=== PATIENT | female | born 1955 | race Caucasian/White ===

== ENCOUNTER → 2016-11-12 | Outpatient (REF) | payer OTHER ==
[~2016-11-12] MED LIST: ADVI200C5 PO; IBUP800T23 PO; LISI10TA4 PO; NEUR300C PO; PRAV1TAB39 PO; RANI1TAB38 PO; TIZA4CAP3 PO; VALT1TAB PO; VITA1CAP14 PO; ZOVI5CRE4 EXT
== END ==
LOC: M SFHCCLAY 07:08
PROVIDERS: ATTEND Nurse Practitioner Family
DX: E78.4 Other hyperlipidemia (principal); E55.9 Vitamin D deficiency, unspecified

== ENCOUNTER → 2017-05-14 | Outpatient (REF) | payer OTHER ==
[~2017-05-14] MED LIST changes: +IBUP1TAB7 PO; -IBUP800T23 PO
[2017-05-14 11:33] LABS: MEAN CORPUSCULAR HEMOGLOBIN 31.3 pg (27.0-33.0); MEAN CORPUSCULAR HGB CONC 32.9 g/dl (32.0-36.5); MEAN CORPUSCULAR VOLUME 95.2 fl (80.0-96.0); PLATELET COUNT, AUTOMATED 379 10^3/uL (150-450); RED CELL DISTRIBUTION WIDTH 12.3 % (11.5-14.5); WHITE BLOOD COUNT 6.5 10^3/uL (4.0-10.0)
[2017-05-14 11:54] LABS: ALBUMIN 3.9 GM/DL (3.2-5.2); ALBUMIN/GLOBULIN RATIO 1.15 (1.00-1.93); BILIRUBIN,TOTAL 0.4 MG/DL (0.2-1.0); CALCIUM LEVEL 9.5 MG/DL (8.8-10.2); CREATININE FOR GFR 1.02 MG/DL (0.55-1.02); GLOMERULAR FILTRATION RATE 58.8 (>45); POTASSIUM SERUM 4.8 MEQ/L (3.5-5.1); TOTAL PROTEIN 7.3 GM/DL (6.4-8.2)
== END ==
LOC: M SFHCCLAY 09:15
PROVIDERS: ATTEND Nurse Practitioner Family
DX: K21.9 Gastro-esophageal reflux disease without esophagitis (principal); I10 Essential (primary) hypertension; E78.4 Other hyperlipidemia; E55.9 Vitamin D deficiency, unspecified

== ENCOUNTER → 2017-09-08 | Outpatient (REF) | payer OTHER ==
[2017-09-08 12:42] LABS: ALBUMIN/GLOBULIN RATIO 1.25 (1.00-1.93); ALKALINE PHOSPHATASE 57 U/L (45-117); ALT/SGPT 40 U/L (12-78); AST/SGOT 22 U/L (7-37); BILIRUBIN,DIRECT 0.1 MG/DL (0.0-0.2); BILIRUBIN,TOTAL 0.3 MG/DL (0.2-1.0); CHOLESTEROL LEVEL 182 MG/DL (<200); CHOLESTEROL RISK RATIO 3.433 (<5); HDL CHOLESTEROL 53 MG/DL (>40); LDL CHOLESTEROL 99.4 MG/DL (<100); NON-HDL-C 129 MG/DL; TOTAL PROTEIN 7.2 GM/DL (6.4-8.2); TRIGLYCERIDES LEVEL 148 MG/DL (<150)
[2017-09-08 12:44] LABS: TOTAL 25(OH) VITAMIN D 51.5 NG/ML (30.0-100.0)
== END ==
LOC: M SFHCCLAY 09:11
DX: E78.4 Other hyperlipidemia (principal); E55.9 Vitamin D deficiency, unspecified

== ENCOUNTER 2018-01-15 08:31 | Day surgery (SDC) | payer OTHER ==
[~2018-01-15 08:31] MED LIST changes: -ADVI200C5 PO; -IBUP1TAB7 PO; -LISI10TA4 PO; +MIDAZOLAM INJ 2 MG/2 ML VIAL (J2250) As Ordered; -NEUR300C PO; -PRAV1TAB39 PO; -RANI1TAB38 PO; -TIZA4CAP3 PO; -VALT1TAB PO; -VITA1CAP14 PO; -ZOVI5CRE4 EXT; +fentaNYL 100 MCG/2 ML INJECTION (J3010) As Ordered
[2018-01-15] MEDS: TROPICAMIDE 1% OPHTH SOLN 2ML OD (09:44)
[2018-01-15] MEDS: PHENYLEPHRINE 2.5% OPHTH SOL 2ML OD (09:44)
[2018-01-15] MEDS: PROPARACAINE 0.5% OPHTH SOL 15ML OD (09:44)
[2018-01-15] MEDS: OFLOXACIN 0.3 % (OCUFLOX) OPTH SOL 5ML OD (09:45)
[2018-01-15] MEDS: POVIDONE-IODINE 5% OPHTH PREP SOL 30ML As Ordered (10:55)
[2018-01-15] MEDS: DUOVISC (0.50ML VISCOAT/0.55ML PROVISC) OPHTH KIT As Ordered (10:57)
[2018-01-15] MEDS: BALANCED SALT IRRIGATION SOLUTION 500ML BAG (FOR OR EYE MACHINE) As Ordered (10:57)
[2018-01-15] MEDS: LIDOCAINE 0.75%/EPINEPHRINE 0.025% IN BSS 1ML SYR INTRACAMERAL (OR ONLY) As Ordered (11:06)
[2018-01-15] MEDS: ACETYLCHOLINE OPHTH SOLN 1% 2ML (MIOCHOL-E) As Ordered (11:08)
== END 2018-01-15 12:15 | disposition home or self-care (01) ==
LOC: M SDC 08:31
DX: H25.11 Age-related nuclear cataract, right eye (principal); R00.0 Tachycardia, unspecified; I10 Essential (primary) hypertension; E78.4 Other hyperlipidemia; K21.9 Gastro-esophageal reflux disease without esophagitis; Z88.0 Allergy status to penicillin; M19.90 Unspecified osteoarthritis, unspecified site; Z79.899 Other long term (current) drug therapy
CPT/HCPCS: 66984

== ENCOUNTER → 2018-04-20 | Outpatient (CLI) | payer OTHER ==
[2018-04-20 09:53] LABS: HEMATOCRIT 36.9 % (36.0-47.0); MEAN CORPUSCULAR HEMOGLOBIN 31.2 pg (27.0-33.0); MEAN CORPUSCULAR HGB CONC 32.5 g/dl (32.0-36.5); MEAN CORPUSCULAR VOLUME 95.8 fl (80.0-96.0); PLATELET COUNT, AUTOMATED 350 10^3/uL (150-450); RED BLOOD COUNT 3.85 10^6/uL (4.00-5.40); RED CELL DISTRIBUTION WIDTH 12.2 % (11.5-14.5); WHITE BLOOD COUNT 6.3 10^3/uL (4.0-10.0)
[2018-04-20 10:20] LABS: ALBUMIN 3.7 GM/DL (3.2-5.2); ALBUMIN/GLOBULIN RATIO 1.16 (1.00-1.93); ALKALINE PHOSPHATASE 57 U/L (45-117); ALT/SGPT 40 U/L (12-78); ANION GAP 7 MEQ/L (8-16); AST/SGOT 23 U/L (7-37); BILIRUBIN,TOTAL 0.3 MG/DL (0.2-1.0); BLOOD UREA NITROGEN 21 MG/DL (7-18); CALCIUM LEVEL 9.2 MG/DL (8.8-10.2); CARBON DIOXIDE LEVEL 28 MEQ/L (21-32); CHLORIDE LEVEL 108 MEQ/L (98-107); CHOLESTEROL LEVEL 189 MG/DL (<200); GLOMERULAR FILTRATION RATE > 60.0 (>45); GLUCOSE, FASTING 104 MG/DL (70-100); HDL CHOLESTEROL 42 MG/DL (>40); LDL CHOLESTEROL 112 MG/DL (<100); NON-HDL-C 147 MG/DL; POTASSIUM SERUM 4.6 MEQ/L (3.5-5.1); SODIUM LEVEL 143 MEQ/L (136-145); TOTAL PROTEIN 6.9 GM/DL (6.4-8.2); TRIGLYCERIDES LEVEL 177 MG/DL (<150)
[2018-04-20 10:42] LABS: TOTAL 25(OH) VITAMIN D 45.7 NG/ML (30.0-100.0)
== END ==
LOC: M WUC 08:27
DX: I10 Essential (primary) hypertension (principal); E55.9 Vitamin D deficiency, unspecified; E78.49 Other hyperlipidemia
CPT/HCPCS: 80053

== ENCOUNTER → 2018-10-15 | Outpatient (CLI) | payer OTHER ==
[~2018-10-15] MED LIST changes: +ADVI200C5 PO; +GABA600T4 PO; +IBUP1TAB7 PO; +LISI10TA4 PO; +MAGN1TAB25 PO; -MIDAZOLAM INJ 2 MG/2 ML VIAL (J2250) As Ordered; +NEUR300C PO; +OMEP40CA2; +PRAV1TAB39 PO; +RANI1TAB38 PO; +SIMV40TA2; +TIZA4CAP PO; +VALT1TAB PO; +VITA1CAP14 PO; +ZOVI5CRE4 EXT; -fentaNYL 100 MCG/2 ML INJECTION (J3010) As Ordered
[2018-10-15 10:00] LABS: CHOLESTEROL RISK RATIO 3.901 (<5)
[2018-10-15 10:07] LABS: TOTAL 25(OH) VITAMIN D 58.6 NG/ML (30.0-100.0)
== END ==
LOC: M WUC 08:17
PROVIDERS: ATTEND Nurse Practitioner Family
DX: E78.49 Other hyperlipidemia (principal); E55.9 Vitamin D deficiency, unspecified

== ENCOUNTER → 2019-10-25 | Outpatient (REF) | payer OTHER ==
[~2019-10-25] MED LIST changes: -MAGN1TAB25 PO; +MAGN1TAB26 PO; -OMEP40CA2; +OMEP40CA97; -SIMV40TA2; +SIMV40TA20
[2019-10-25 16:31] LABS: HEMATOCRIT 44.5 % (36.0-47.0); HEMOGLOBIN 14.1 g/dl (12.0-15.5); MEAN CORPUSCULAR HEMOGLOBIN 31.1 pg (27.0-33.0); MEAN CORPUSCULAR HGB CONC 31.7 g/dl (32.0-36.5); MEAN CORPUSCULAR VOLUME 98.2 fl (80.0-96.0); PLATELET COUNT, AUTOMATED 362 10^3/uL (150-450); RED BLOOD COUNT 4.53 10^6/uL (4.00-5.40)
[2019-10-25 17:03] LABS: ALBUMIN 4.3 GM/DL (3.2-5.2); BILIRUBIN,TOTAL 0.4 MG/DL (0.2-1.0); CALCIUM LEVEL 9.8 MG/DL (8.8-10.2); CREATININE FOR GFR 1.02 MG/DL (0.55-1.30); GLOMERULAR FILTRATION RATE 58.3 (>45); POTASSIUM SERUM 4.5 MEQ/L (3.5-5.1); TOTAL PROTEIN 8.1 GM/DL (6.4-8.2)
[2019-10-25 17:07] LABS: TOTAL 25(OH) VITAMIN D 48.3 NG/ML (30.0-100.0)
== END ==
LOC: M SFHCCLAY 10:21
PROVIDERS: ATTEND Nurse Practitioner Family
DX: I10 Essential (primary) hypertension (principal); E78.49 Other hyperlipidemia; E55.9 Vitamin D deficiency, unspecified

== ENCOUNTER → 2020-04-27 | Outpatient (REF) | payer BC ==
[2020-04-27 16:32] LABS: CHOLESTEROL RISK RATIO 3.785 (<5)
== END ==
LOC: M SFHCCLAY 09:32
PROVIDERS: ATTEND Nurse Practitioner Family
DX: E78.5 Hyperlipidemia, unspecified (principal)

== ENCOUNTER → 2020-10-24 | Outpatient (CLI) | payer BC ==
[~2020-10-24] MED LIST changes: +LISI10TA22 PO; -LISI10TA4 PO
[2020-10-24 17:59] LABS: HEMATOCRIT 40.8 % (36.0-47.0); HEMOGLOBIN 12.8 g/dl (12.0-15.5); MEAN CORPUSCULAR HGB CONC 31.4 g/dl (32.0-36.5); MEAN CORPUSCULAR VOLUME 98.8 fl (80.0-96.0); PLATELET COUNT, AUTOMATED 278 10^3/uL (150-450); RED BLOOD COUNT 4.13 10^6/uL (4.00-5.40); WHITE BLOOD COUNT 7.2 10^3/uL (4.0-10.0)
[2020-10-24 18:35] LABS: ALBUMIN 3.9 GM/DL (3.2-5.2); ALT/SGPT 59 U/L (12-78); BILIRUBIN,TOTAL 0.4 MG/DL (0.2-1.0); BLOOD UREA NITROGEN 18 MG/DL (7-18); CALCIUM LEVEL 9.5 MG/DL (8.8-10.2); CARBON DIOXIDE LEVEL 32 MEQ/L (21-32); CHLORIDE LEVEL 108 MEQ/L (98-107); CHOLESTEROL LEVEL 217 MG/DL (<200); CHOLESTEROL RISK RATIO 3.875 (<5); CREATININE FOR GFR 0.94 MG/DL (0.55-1.30); GLOMERULAR FILTRATION RATE > 60.0 (>45); GLUCOSE, FASTING 103 MG/DL (70-100); HDL CHOLESTEROL 56 MG/DL (>40); LDL CHOLESTEROL 137 MG/DL (<100); NON-HDL-C 161 MG/DL; POTASSIUM SERUM 4.3 MEQ/L (3.5-5.1); SODIUM LEVEL 141 MEQ/L (136-145); TRIGLYCERIDES LEVEL 122 MG/DL (<150)
[2020-10-24 18:45] LABS: TOTAL 25(OH) VITAMIN D 35.6 NG/ML (30.0-100.0)
== END ==
LOC: M WUC 10:50
PROVIDERS: ATTEND Nurse Practitioner Family
DX: I10 Essential (primary) hypertension (principal); K21.9 Gastro-esophageal reflux disease without esophagitis; E78.5 Hyperlipidemia, unspecified; E55.9 Vitamin D deficiency, unspecified

== ENCOUNTER → 2021-05-09 | Outpatient (CLI) | payer BC ==
[~2021-05-09] MED LIST changes: +OMEP40CA4; -OMEP40CA97
[2021-05-09 12:28] LABS: CHOLESTEROL RISK RATIO 3.333 (<5)
== END ==
LOC: M WUC 08:06
PROVIDERS: ATTEND Nurse Practitioner Family
DX: E78.5 Hyperlipidemia, unspecified (principal)

== ENCOUNTER → 2021-07-09 | Outpatient (CLI) | payer BC ==
[2021-07-09 10:46] LABS: BASO # 0.1 10^3/uL (0.0-0.2); BASO % 0.9 % (0.0-1.0); EOS # 0.4 10^3/uL (0.0-0.5); EOS % 5.3 % (0.0-3.0); HEMATOCRIT 39.5 % (36.0-47.0); HEMOGLOBIN 12.5 g/dl (12.0-15.5); LYMPH # 2.3 10^3/uL (1.5-5.0); LYMPH % 30.2 % (24.0-44.0); MEAN CORPUSCULAR HEMOGLOBIN 32.6 pg (27.0-33.0); MEAN CORPUSCULAR HGB CONC 31.6 g/dl (32.0-36.5); MEAN CORPUSCULAR VOLUME 103.1 fl (80.0-96.0); MONO # 0.7 10^3/uL (0.0-0.8); MONO % 9.2 % (2.0-8.0); NEUTROPHILS # 4.1 10^3/uL (1.5-8.5); NEUTROPHILS % 54.1 % (36.0-66.0); PLATELET COUNT, AUTOMATED 300 10^3/uL (150-450); RED BLOOD COUNT 3.83 10^6/uL (4.00-5.40); WHITE BLOOD COUNT 7.5 10^3/uL (4.0-10.0)
[2021-07-09 11:11] LABS: ALBUMIN 3.6 GM/DL (3.2-5.2); ALT/SGPT 46 U/L (12-78); BILIRUBIN,TOTAL 0.3 MG/DL (0.2-1.0); BLOOD UREA NITROGEN 12 MG/DL (7-18); CALCIUM LEVEL 9.5 MG/DL (8.8-10.2); CARBON DIOXIDE LEVEL 29 MEQ/L (21-32); CHLORIDE LEVEL 108 MEQ/L (98-107); GLOMERULAR FILTRATION RATE > 60.0 (>45); GLUCOSE, FASTING 92 MG/DL (70-100); POTASSIUM SERUM 4.1 MEQ/L (3.5-5.1); SODIUM LEVEL 143 MEQ/L (136-145); TOTAL PROTEIN 7.1 GM/DL (6.4-8.2)
== END ==
LOC: M PLALAB 08:52
PROVIDERS: ATTEND Internal Medicine
DX: I10 Essential (primary) hypertension (principal)

== ENCOUNTER → 2021-11-09 | Outpatient (CLI) | payer BC ==
[2021-11-09 13:30] LABS: BASO # 0.1 10^3/uL (0.0-0.2); BASO % 0.7 % (0.0-1.0); EOS # 0.1 10^3/uL (0.0-0.5); EOS % 1.3 % (0.0-3.0); HEMATOCRIT 43.5 % (36.0-47.0); HEMOGLOBIN 14.2 g/dl (12.0-15.5); LYMPH # 2.3 10^3/uL (1.5-5.0); LYMPH % 27.8 % (24.0-44.0); MEAN CORPUSCULAR HEMOGLOBIN 33.3 pg (27.0-33.0); MEAN CORPUSCULAR HGB CONC 32.6 g/dl (32.0-36.5); MEAN CORPUSCULAR VOLUME 101.9 fl (80.0-96.0); MONO # 0.7 10^3/uL (0.0-0.8); MONO % 8.1 % (2.0-8.0); NEUTROPHILS # 5.1 10^3/uL (1.5-8.5); NEUTROPHILS % 61.7 % (36.0-66.0); PLATELET COUNT, AUTOMATED 337 10^3/uL (150-450); RED BLOOD COUNT 4.27 10^6/uL (4.00-5.40); WHITE BLOOD COUNT 8.3 10^3/uL (4.0-10.0)
[2021-11-09 13:49] LABS: HEMOGLOBIN A1c 5.3 %
[2021-11-09 14:09] LABS: ALBUMIN 4.1 GM/DL (3.2-5.2); ALT/SGPT 34 U/L (12-78); BILIRUBIN,TOTAL 0.5 MG/DL (0.2-1.0); BLOOD UREA NITROGEN 17 MG/DL (7-18); CALCIUM LEVEL 9.9 MG/DL (8.8-10.2); CARBON DIOXIDE LEVEL 30 MEQ/L (21-32); CHLORIDE LEVEL 108 MEQ/L (98-107); CHOLESTEROL LEVEL 198 MG/DL (<200); CHOLESTEROL RISK RATIO 3.193 (<5); CREATININE FOR GFR 0.89 MG/DL (0.55-1.30); GLOMERULAR FILTRATION RATE > 60.0 (>45); GLUCOSE, FASTING 94 MG/DL (70-100); HDL CHOLESTEROL 62 MG/DL (>40); LDL CHOLESTEROL 109 MG/DL (<100); NON-HDL-C 136 MG/DL; SODIUM LEVEL 141 MEQ/L (136-145); TOTAL PROTEIN 7.7 GM/DL (6.4-8.2); TRIGLYCERIDES LEVEL 135 MG/DL (<150)
== END ==
LOC: M PLALAB 09:58
PROVIDERS: ATTEND Nurse Practitioner Family
DX: E78.5 Hyperlipidemia, unspecified (principal); I10 Essential (primary) hypertension

== ENCOUNTER → 2022-05-15 | Outpatient (CLI) | payer BC ==
[2022-05-15 10:51] LABS: BASO % 0.6 % (0.0-1.0); EOS # 0.2 10^3/uL (0.0-0.5); EOS % 3.3 % (0.0-3.0); HEMATOCRIT 38.4 % (36.0-47.0); HEMOGLOBIN 12.4 g/dl (12.0-15.5); LYMPH # 2.1 10^3/uL (1.5-5.0); LYMPH % 29.8 % (24.0-44.0); MEAN CORPUSCULAR HEMOGLOBIN 33.3 pg (27.0-33.0); MEAN CORPUSCULAR HGB CONC 32.3 g/dl (32.0-36.5); MEAN CORPUSCULAR VOLUME 103.2 fl (80.0-96.0); MONO # 0.6 10^3/uL (0.0-0.8); MONO % 9.1 % (2.0-8.0); NEUTROPHILS % 57.1 % (36.0-66.0); PLATELET COUNT, AUTOMATED 322 10^3/uL (150-450); RED BLOOD COUNT 3.72 10^6/uL (4.00-5.40)
[2022-05-15 11:36] LABS: ALBUMIN 3.5 GM/DL (3.2-5.2); BILIRUBIN,TOTAL 0.7 MG/DL (0.2-1.0); CALCIUM LEVEL 9.4 MG/DL (8.8-10.2); CHOLESTEROL RISK RATIO 3.125 (<5); CREATININE FOR GFR 1.03 MG/DL (0.55-1.30); GLOMERULAR FILTRATION RATE 57.3 (>45); TOTAL PROTEIN 6.9 GM/DL (6.4-8.2)
[2022-05-15 20:36] LABS: TOTAL 25(OH) VITAMIN D 39.3 NG/ML (30.0-100.0)
== END ==
LOC: M WUC 08:17
PROVIDERS: ATTEND Nurse Practitioner Family
DX: E78.5 Hyperlipidemia, unspecified (principal); I10 Essential (primary) hypertension; E55.9 Vitamin D deficiency, unspecified

== ENCOUNTER → 2023-06-20 | Outpatient (CLI) | payer BC ==
[2023-06-20 12:01] LABS: BASO # 0.1 10^3/uL (0.0-0.2); BASO % 1.1 % (0.0-1.0); EOS # 0.3 10^3/uL (0.0-0.5); HEMOGLOBIN 12.2 g/dl (12.0-15.5); LYMPH # 2.1 10^3/uL (1.5-5.0); LYMPH % 32.5 % (24.0-44.0); MEAN CORPUSCULAR HEMOGLOBIN 33.2 pg (27.0-33.0); MEAN CORPUSCULAR HGB CONC 32.1 g/dl (32.0-36.5); MEAN CORPUSCULAR VOLUME 103.5 fl (80.0-96.0); MONO # 0.6 10^3/uL (0.0-0.8); MONO % 8.6 % (2.0-8.0); NEUTROPHILS # 3.5 10^3/uL (1.5-8.5); NEUTROPHILS % 53.5 % (36.0-66.0); PLATELET COUNT, AUTOMATED 296 10^3/uL (150-450); RED BLOOD COUNT 3.67 10^6/uL (4.00-5.40); WHITE BLOOD COUNT 6.5 10^3/uL (4.0-10.0)
[2023-06-20 12:34] LABS: FREE T4 0.79 NG/DL (0.89-1.76); THYROID STIMULATING HORMONE 2.434 uIU/ML (0.55-4.78); TOTAL 25(OH) VITAMIN D 23.6 NG/ML (20.0-100.0)
[2023-06-20 12:35] LABS: ALBUMIN 3.8 G/DL (3.2-5.2); BILIRUBIN,TOTAL 0.5 MG/DL (0.3-1.2); CALCIUM LEVEL 9.3 MG/DL (8.3-10.6); CHOLESTEROL RISK RATIO 2.77 (<5); CREATININE FOR GFR 1.09 MG/DL (0.55-1.30); GLOMERULAR FILTRATION RATE 53.5 (>45); HDL CHOLESTEROL 68.1 MG/DL (>40); LDL CHOLESTEROL 97.9 MG/DL (<100); NON-HDL-C 120.9 MG/DL; POTASSIUM SERUM 4.3 MMOL/L (3.5-5.1)
== END ==
LOC: M WUC 08:32
PROVIDERS: ATTEND Nurse Practitioner Family
DX: I10 Essential (primary) hypertension (principal); E78.5 Hyperlipidemia, unspecified; E55.9 Vitamin D deficiency, unspecified; Z13.1 Encounter for screening for diabetes mellitus

== ENCOUNTER → 2023-09-29 | Outpatient (CLI) | payer BC ==
[2023-09-29 13:14] LABS: BASO # 0.1 10^3/uL (0.0-0.2); EOS # 0.2 10^3/uL (0.0-0.5); HEMOGLOBIN 12.5 g/dl (12.0-15.5); LYMPH # 2.9 10^3/uL (1.5-5.0); LYMPH % 39.6 % (24.0-44.0); MEAN CORPUSCULAR HEMOGLOBIN 33.4 pg (27.0-33.0); MEAN CORPUSCULAR HGB CONC 32.1 g/dl (32.0-36.5); MEAN CORPUSCULAR VOLUME 104.3 fl (80.0-96.0); MONO # 0.7 10^3/uL (0.0-0.8); MONO % 9.3 % (2.0-8.0); NEUTROPHILS # 3.4 10^3/uL (1.5-8.5); PLATELET COUNT, AUTOMATED 293 10^3/uL (150-450); RED BLOOD COUNT 3.74 10^6/uL (4.00-5.40); WHITE BLOOD COUNT 7.3 10^3/uL (4.0-10.0)
[2023-09-29 13:51] LABS: THYROID STIMULATING HORMONE 3.179 uIU/ML (0.55-4.78)
[2023-09-29 13:52] LABS: FREE T4 0.89 NG/DL (0.89-1.76)
== END ==
LOC: M WUC 08:12
PROVIDERS: ATTEND Nurse Practitioner Family
DX: D75.89 Other specified diseases of blood and blood-forming organs (principal); E03.8 Other specified hypothyroidism

== ENCOUNTER → 2024-02-09 | Outpatient (CLI) | payer BC ==
[2024-02-09 12:40] LABS: BASO # 0.1 10^3/uL (0.0-0.2); BASO % 1.1 % (0.0-1.0); EOS # 0.2 10^3/uL (0.0-0.5); EOS % 1.9 % (0.0-3.0); HEMATOCRIT 37.6 % (36.0-47.0); HEMOGLOBIN 12.1 g/dl (12.0-15.5); LYMPH # 2.8 10^3/uL (1.5-5.0); LYMPH % 33.1 % (24.0-44.0); MEAN CORPUSCULAR HGB CONC 32.2 g/dl (32.0-36.5); MEAN CORPUSCULAR VOLUME 99.5 fl (80.0-96.0); MONO # 0.7 10^3/uL (0.0-0.8); MONO % 8.1 % (2.0-8.0); NEUTROPHILS # 4.7 10^3/uL (1.5-8.5); NEUTROPHILS % 55.4 % (36.0-66.0); PLATELET COUNT, AUTOMATED 280 10^3/uL (150-450); RED BLOOD COUNT 3.78 10^6/uL (4.00-5.40); WHITE BLOOD COUNT 8.4 10^3/uL (4.0-10.0)
== END ==
LOC: M WUC 08:16
PROVIDERS: ATTEND Nurse Practitioner Family
DX: E53.8 Deficiency of other specified B group vitamins (principal)

== ENCOUNTER → 2024-06-28 | Outpatient (CLI) | payer BC ==
[~2024-06-28] MED LIST changes: +GABA-1490 PO; -GABA600T4 PO
[2024-06-28 12:16] LABS: BASO # 0.1 10^3/uL (0.0-0.2); EOS # 0.2 10^3/uL (0.0-0.5); EOS % 3.3 % (0.0-3.0); HEMATOCRIT 37.4 % (36.0-47.0); LYMPH # 2.8 10^3/uL (1.5-5.0); LYMPH % 39.7 % (24.0-44.0); MEAN CORPUSCULAR HEMOGLOBIN 32.3 pg (27.0-33.0); MEAN CORPUSCULAR HGB CONC 32.1 g/dl (32.0-36.5); MEAN CORPUSCULAR VOLUME 100.5 fl (80.0-96.0); MONO # 0.6 10^3/uL (0.0-0.8); MONO % 7.8 % (2.0-8.0); NEUTROPHILS # 3.4 10^3/uL (1.5-8.5); NEUTROPHILS % 48.1 % (36.0-66.0); PLATELET COUNT, AUTOMATED 307 10^3/uL (150-450); RED BLOOD COUNT 3.72 10^6/uL (4.00-5.40)
[2024-06-28 12:22] LABS: ALBUMIN 3.4 G/DL (3.2-5.2); BILIRUBIN,TOTAL 0.3 MG/DL (0.3-1.2); CALCIUM LEVEL 9.5 MG/DL (8.3-10.6); CHOLESTEROL RISK RATIO 3.66 (<5); CREATININE FOR GFR 1.03 MG/DL (0.55-1.30); FREE T4 0.85 NG/DL (0.89-1.76); GLOMERULAR FILTRATION RATE 56.9 (>45); HDL CHOLESTEROL 58.9 MG/DL (>40); LDL CHOLESTEROL 128.5 MG/DL (<100); NON-HDL-C 157.1 MG/DL; POTASSIUM SERUM 4.4 MMOL/L (3.5-5.1); THYROID STIMULATING HORMONE 2.617 uIU/ML (0.55-4.78)
[2024-06-28 12:23] LABS: TOTAL 25(OH) VITAMIN D 29.8 NG/ML (20.0-100.0)
== END ==
LOC: M WUC 09:03
PROVIDERS: ATTEND Nurse Practitioner Family
DX: Z00.00 Encounter for general adult medical examination without abnormal findings (principal); E78.5 Hyperlipidemia, unspecified; E55.9 Vitamin D deficiency, unspecified; E03.8 Other specified hypothyroidism; D75.89 Other specified diseases of blood and blood-forming organs

== ENCOUNTER → 2024-10-25 | Outpatient (CLI) | payer MEDICARE ==
[2024-10-25 12:02] LABS: PLATELET COUNT, AUTOMATED 337 10^3/uL (150-450)
[2024-10-25 12:10] LABS: INR 0.95; PARTIAL THROMBOPLASTIN TIME 31.8 SECONDS (24.8-34.2)
== END ==
LOC: M WUC 10:09
PROVIDERS: ATTEND Physician Assistant
DX: Z01.818 Encounter for other preprocedural examination (principal)